=== PATIENT | female | born 1945 | race Caucasian/White ===

== ENCOUNTER 2021-11-12 06:06 | Day surgery (SDC) | payer MEDICARE ==
[2021-11-12] VITALS (10 sets, daily range): BP systolic 92–146; BP diastolic 59–90
[~2021-11-12] VITALS: Ht 157.5 cm; Wt 51.1 kg
[~2021-11-12 06:06] MED LIST: OMEP-50 PO
[2021-11-12] MEDS ORDERED: normal saline 1000ml 1,000 ML IV PRN (06:35)
[2021-11-12] MEDS ORDERED: albumin 25% 100mL bottle x 1 IV PRN (06:35)
[2021-11-12] MEDS ORDERED: LIDOcaine 1% 30ml preserv. free vial IJ STA (07:46)
== END 2021-11-12 10:00 | disposition home or self-care (01) ==
LOC: SSTAY O 06:06
PROVIDERS: ATTEND Radiology Vascular & Interventional Radiology
DX: R18.8 Other ascites (principal); R14.0 Abdominal distension (gaseous); E78.5 Hyperlipidemia, unspecified; F41.9 Anxiety disorder, unspecified; E03.9 Hypothyroidism, unspecified; F17.210 Nicotine dependence, cigarettes, uncomplicated; Z86.73 Personal history of transient ischemic attack (TIA), and cerebral infarction without residual deficits; Z87.442 Personal history of urinary calculi; Z79.899 Other long term (current) drug therapy
CPT/HCPCS: 49083; J3490; P9047

== ENCOUNTER 2021-12-04 08:43 | Day surgery (SDC) | payer MEDICARE ==
[~2021-12-04] VITALS: Ht 157.5 cm; Wt 46.4 kg
[2021-12-04] VITALS (18 sets, daily range): BP systolic 94–128; BP diastolic 56–87
[~2021-12-04 08:43] MED LIST changes: +LIDOcaine 1% 30ml preserv. free vial SQ STA
[2021-12-04] MEDS ORDERED: albumin 25% 100mL bottle x 1 IV PRN (09:10)
[2021-12-04] MEDS ORDERED: LIDOcaine 1% 30ml preserv. free vial IJ STA (09:26)
[2021-12-04] MEDS ORDERED: ondansetron/PF 4mg/2ml inj IV ONE (10:05)
[2021-12-04] MEDS ORDERED: midazolam 1 mg/ML 2ml injection ONE (12:19)
[2021-12-04] MEDS ORDERED: heparin sodium, porcine/PF 100unit/ml 5ML syringe ONE (12:19)
[2021-12-04] MEDS ORDERED: fentaNYL/PF 50MCG/1 ML 2ML syringe ONE (12:20)
[2021-12-04] MEDS ORDERED: diphenhydrAMINE 50 mg/ml inj ONE (12:45)
[2021-12-04] MEDS ORDERED: ceFAZolin/D5W- 1GM premix 50 ML IV ONE (13:15)
== END 2021-12-04 16:00 | disposition home or self-care (01) ==
LOC: SSTAY O 08:43
PROVIDERS: ATTEND Preventive Medicine Aerospace Medicine
DX: C56.9 Malignant neoplasm of unspecified ovary (principal); R18.8 Other ascites; R14.0 Abdominal distension (gaseous); E78.5 Hyperlipidemia, unspecified; F41.9 Anxiety disorder, unspecified; E03.9 Hypothyroidism, unspecified; F17.290 Nicotine dependence, other tobacco product, uncomplicated; Z86.73 Personal history of transient ischemic attack (TIA), and cerebral infarction without residual deficits; Z87.442 Personal history of urinary calculi; Z79.899 Other long term (current) drug therapy
CPT/HCPCS: 36561; 49083; 76937; 77001; 99152; C1769; C1788; C1894; J0690; J1200; J1642; J2250; J2405; J3010; J3490; P9047